=== PATIENT | male | born 1980 | race Caucasian/White ===

== ENCOUNTER 2021-01-25 21:38 | Emergency (ER) | payer OTHER ==
[~2021-01-25] VITALS: Ht 188 cm; Wt 136.1 kg
[2021-01-25] MEDS ORDERED: LIDOCAINE HCL/MPF 1% 30 ML VIAL IJ ONE (21:46)
[2021-01-25] MEDS ORDERED: LIDOCAINE HCL/PF 1% 30 ML VIAL TP ONE (22:00)
--- NOTE | 2021-01-25 22:31 | NUR ---
xray at bedside
[2021-01-25] MEDS ORDERED: CEPH250C PO (22:34)
[2021-01-25] MEDS ORDERED: IBUPROFEN 400 MG TABLET ONE (22:40)
[2021-01-25] MEDS ORDERED: TDAP [DIPH/PERTUSSIS/TET] 0.5 ML VIAL IM ONE (23:00)
[2021-01-25] MEDS ORDERED: IBUPROFEN 400 MG TABLET PO ONE (23:00)
--- NOTE | 2021-01-25 23:16 | NUR ---
called mikayla to have image read
--- NOTE | 2021-01-25 23:23 | NUR ---
Patient discharged to home in stable condition. Written and verbal after care instructions given. Patient verbalizes understanding of instruction.
[2021-01-25 23:28] VITALS: BP 144/88
== END 2021-01-25 23:30 | disposition home or self-care (01) ==
LOC: ER 21:54
DX: S97.112A Crushing injury of left great toe, initial encounter (principal); S91.202A Unspecified open wound of left great toe with damage to nail, initial encounter; W20.8XXA Other cause of strike by thrown, projected or falling object, initial encounter; Y93.89 Activity, other specified; Y92.89 Other specified places as the place of occurrence of the external cause; Y99.8 Other external cause status
CPT/HCPCS: 64450; 73660; 90471; 90715; 99284; J3490 ×2